=== PATIENT | female | born 2000 | race Caucasian/White ===

== ENCOUNTER 2022-04-04 04:07 | Emergency (ER) | payer MEDICAID ==
[~2022-04-04] VITALS: Ht 165.1 cm; Wt 59.9 kg
[2022-04-04 04:14] VITALS: BP 114/59
[2022-04-04] MEDS ORDERED: MICO85PO14 TOP (05:53)
[2022-04-04 05:55] LABS: CLARITY URINE CLOUDY (CLEAR); COLOR URINE YELLOW (YELLOW); KETONES URINE NEGATIVE (NEGATIVE); LEUKOCYTE ESTERASE URINE 3+ (NEGATIVE); NITRITE URINE NEGATIVE (NEGATIVE); OCCULT BLOOD URINE NEGATIVE (NEGATIVE); PH URINE 6.5 (4.5-8.0); PROTEIN URINE NEGATIVE (NEGATIVE); SPECIFIC GRAVITY URINE 1.011 (1.005-1.030); UROBILINOGEN URINE 0.2 E.U./dL (0.2-1.0)
[2022-04-04] MEDS ORDERED: FLUCONAZOLE 100MG TABLET PO ONE (06:00)
[2022-04-04] MEDS ORDERED: CEPH500T MT (06:07)
[2022-04-04] MEDS ORDERED: FLUCONAZOLE 150MG TABLET PO NR (06:15)
[2022-04-05] MEDS ORDERED: NYST15CR33 TP (10:26)
[2022-04-07 04:12] LABS: NEISSERIA GONORRHOEAE NAA Negative (Negative)
== END 2022-04-04 06:38 | disposition home or self-care (01) ==
LOC: ER 04:07
DX: N39.0 Urinary tract infection, site not specified (principal)
CPT/HCPCS: 81003; 81025; 87210; 87491; 87591; 99283; Z7610